=== PATIENT | female | born 1990 | race Caucasian/White ===

== ENCOUNTER 2020-10-25 22:06 | Emergency (ER) | payer BC ==
[2020-10-26] MEDS ORDERED: MEDDOSEPAK PO (01:18)
[2020-10-26] MEDS ORDERED: ZPAK PO (01:18)
[2020-10-26 01:50] VITALS: BP 118/62
== END 2020-10-26 01:50 | disposition home or self-care (01) | DRG 179 ==
LOC: ED 22:06
DX: U07.1 COVID-19 (principal)

== ENCOUNTER 2021-12-01 05:53 | Emergency (ER) | payer BC ==
[2021-12-01] VITALS (20 sets, daily range): BP systolic 90–108; BP diastolic 55–75
[~2021-12-01 05:53] MED LIST: MEDDOSEPAK PO; ZPAK PO
[2021-12-01 06:47] LABS: HEMOGLOBIN 17.2 g/dl (12.0-16.0); IMMATURE GRANULOCYTES 0.2 % (0.0-5.0); MEAN CELL VOLUME 84.3 fL CALC (80.0-100.0); MEAN CORPUSCULAR HGB 25.4 pG CALC (26.0-32.0); MEAN CORPUSCULAR HGB CONC 30.2 g/dL CAL (32.0-36.0); NEUT# 5.12 thou/uL (2.00-7.15); RED BLOOD COUNT 6.76 mill/uL (4.20-5.60); RED CELL DISTRI WIDTH 17.2 % (11.5-15.5)
[2021-12-01 06:51] LABS: ALBUMIN 3.9 g/dL (3.2-5.0); ALKALINE PHOSPHATASE 121 u/l (38-126); ANION GAP 15 (6-22 (CALC)); BILIRUBIN, TOTAL 0.7 mg/dL (0.0-1.4); BUN 9 mg/dL (7-17); BUN/CREATININE RATIO 15 (12-20 (CALC)); CARBON DIOXIDE 23 mmol/l (22-30); CHLORIDE 105 mmol/l (95-108); CPK 70 u/l (30-165); CREATININE 0.6 mg/dL (0.5-1.0); GFR FOR AFR.AMER. > 60 ML/MIN (>=60 (CALC)); GFR OTHER RACES > 60 ML/MIN (>=60 (CALC)); MAGNESIUM 1.5 mg/dL (1.6-2.3); POTASSIUM 3.5 mmol/l (3.5-5.1); SGOT/AST 53 u/l (14-36); SODIUM 139 mmol/l (137-146)
[2021-12-01 07:02] LABS: D-DIMER 0.75 mg/L (0.19-0.60); MYOGLOBIN 210 ng/mL (0 - 62)
[2021-12-01 07:13] LABS: ACT PARTIAL THROMBO TIME 27.2 SECONDS (20.0-32.5); INTERNATIONAL NORMALIZED RATIO 1.2 RATIO (0.7-1.3); PROTHROMBIN TIME 11.5 SECONDS (9.0-12.5)
[2021-12-01 08:50] LABS: URINE BILIRUBIN - DIPSTICK NEGATIVE (NEGATIVE); URINE BLOOD DIPSTICK TRACE-INTACT (NEGATIVE); URINE COLOR YELLOW; URINE GLUCOSE - DIPSTICK NEGATIVE (NEGATIVE); URINE KETONE NEGATIVE (NEGATIVE); URINE PH 6.5 (4.5-8.0); URINE PROTEIN - DIPSTICK 30 mg/dL (NEG-TRACE); URINE SPECIFIC GRAVITY <=1.005
[2021-12-01 08:59] LABS: URINE LEUK ESTERASE SMALL (NEGATIVE); URINE NITRITE - DIPSTICK POSITIVE (Negative)
[2021-12-01 09:04] LABS: URINE BACTERIA MODERATE hpf; URINE EPITHELIAL CELLS FEW EPI/hpf (0-FEW); URINE RBC 0-2 RBC/hpf (0-5)
[2021-12-01] MEDS ORDERED: ZOFRAN4 MG/TAB PO (09:22)
[2021-12-01] MEDS ORDERED: OMNICEF300 MG PO (09:22)
--- NOTE | 2021-12-03 08:10 | NUR ---
CALLED LM FOR PT, NEED TO CHANGE ABX TO LEVAQUIN DUE TO C&S RESULTS
== END 2021-12-01 09:36 | disposition home or self-care (01) | DRG 312 ==
LOC: ED 05:53
PROVIDERS: Family Medicine
DX: R55 Syncope and collapse (principal); E86.0 Dehydration; N39.0 Urinary tract infection, site not specified; F32.9 Major depressive disorder, single episode, unspecified; F17.200 Nicotine dependence, unspecified, uncomplicated; B96.20 Unspecified Escherichia coli [E. coli] as the cause of diseases classified elsewhere; Z20.822 Contact with and (suspected) exposure to COVID-19
CPT/HCPCS: Q9967